=== PATIENT | female | born 1960 | race Caucasian/White ===

== ENCOUNTER 2016-10-27 06:30 | Day surgery (SDC) | payer OTHER ==
[~2016-10-27] VITALS: Ht 160 cm; Wt 87.7 kg
[2016-10-27] VITALS (9 sets, daily range): BP systolic 116–133; BP diastolic 58–79; PULSE 60–90; RESP 11–22; Ht 160 cm; Wt 87.7 kg
[2016-10-27] MEDS ORDERED: FENTAnyl 50 MCG/ML VIAL ONE (07:18)
[2016-10-27] MEDS ORDERED: ONDANSETRON 4 MG INJ ONE (07:18)
[2016-10-27] MEDS ORDERED: MIDAZOLAM 1 MG/ML 2 ML INJ ONE (07:18)
[2016-10-27] MEDS ORDERED: METOCLOPRAMIDE 10 MG INJ ONE (07:18)
[2016-10-27] MEDS ORDERED: PROPOFOL 20 ML ONE (07:18)
[2016-10-27] MEDS ORDERED: LIDOCAINE 1% (MDV) 20 ML INJ ONE (07:19)
[2016-10-27] MEDS ORDERED: DEXAMETHASONE 4 MG/ML 1 ML INJ ONE (07:19)
--- NOTE | 2016-10-27 07:54 | HPN ---
Date/Time of Note Date/Time of Note DATE: 10/27/16 TIME: 07:54 Interval H&P Admission Note Pt. seen H&P reviewed: No system changes IVY MURRY DPM October 27, 2016 07:54
[2016-10-27] MEDS ORDERED: LISI20TA11 PO (08:07)
[2016-10-27 08:14] LABS: ADD SCAN DIFF NO
[2016-10-27 08:16] LABS: BASOPHILS % 0.4 % (0.0-2.0); EOSINOPHILS # 0.1 10^3/ul (0.0-0.5); EOSINOPHILS % 1.9 % (0.0-7.0); HEMATOCRIT 43.1 % (37.0-47.0); HEMOGLOBIN 14.8 g/dl (12.0-16.0); LYMPHOCYTES # 2.1 10^3/ul (0.8-2.9); LYMPHOCYTES % 29.8 % (15.0-51.0); MEAN CORPUSCULAR HEMOGLOBIN 32.2 pg (29.0-33.0); MEAN CORPUSCULAR HGB CONC 34.3 g/dl (32.0-37.0); MEAN CORPUSCULAR VOLUME 93.9 fl (82.0-101.0); MEAN PLATELET VOLUME 9.5 fl (7.4-10.4); MONOCYTE # 0.6 10^3/ul (0.3-0.9); MONOCYTES % 8.8 % (0.0-11.0); NEUTROPHIL # 4.1 10^3/ul (1.6-7.5); NEUTROPHILS % 58.8 % (39.0-77.0); PLATELET COUNT 219 10^3/UL (140-415); RED BLOOD COUNT 4.59 10^6/ul (4.20-5.40); RED CELL DISTRIBUTION WIDTH 12.5 % (11.5-14.5)
[2016-10-27] MEDS ORDERED: CEFAZOLIN 1 GM INJ ONE (08:18)
[2016-10-27] MEDS ORDERED: BUPIVACAINE 0.5% (SDV) 30 ML INJ ONE (08:27)
[2016-10-27] MEDS ORDERED: POVIDONE IODINE 10% 28.4 GM OINT ONE (08:27)
[2016-10-27] MEDS ORDERED: HYDROmorphONE 2 MG/ML SYG ONE (08:32)
[2016-10-27 08:41] LABS: CALCIUM 9.4 mg/dl (8.4-10.2); CREATININE 0.63 mg/dl (0.44-1.00); POTASSIUM 4.1 mmol/L (3.5-5.1)
[2016-10-27] MEDS ORDERED: KETOROLAC 30 MG INJ ONE (08:42)
[2016-10-27] MEDS ORDERED: ONDANSETRON 4 MG INJ IV PRN (09:00)
[2016-10-27] MEDS ORDERED: HYDROmorphONE (0.2 MG/ML) 10ML SYG IV PRN (09:00)
[2016-10-27] MEDS ORDERED: MIDAZOLAM 1 MG/ML 2 ML INJ IV PRN (09:00)
[2016-10-27] MEDS ORDERED: hydrALAzine 20 MG INJ IV PRN (09:00)
[2016-10-27] MEDS ORDERED: FENTAnyl 50 MCG/ML VIAL IV PRN ×2 (09:00)
[2016-10-27] MEDS ORDERED: LABETALOL HCL 20MG INJ IV PRN (09:00)
[2016-10-27] MEDS ORDERED: DIPHENHYDRAMINE 50 MG INJ IV PRN (09:00)
--- NOTE | 2016-10-27 09:49 | PREOPHP ---
DATE OF ADMISSION: 10/27/2016 HISTORY OF PRESENT ILLNESS: The patient is being admitted to the hospital for elective foot surgery , palliative treatment unsuccessful. Patient has been explained surgery complications, alternatives and elected to have elective foot surgery. The pain is on the 5th metatarsal head on the left foot . ALLERGIES: PENICILLIN. MEDICATION: Occasionally Motrin. REVIEW OF SYSTEMS: Negative heart, lung, liver, kidney, thyroid. Negative diabetes. SOCIAL HISTORY: Usually smokes half pack a day and negative alcohol. See any other pertinent history in upper extremity physical exam by Dr. Saldivar. PHYSICAL EXAMINATION: LOWER EXTREMITIES: Shows DP and PT equal and regular. NEUROLOGICAL: Negative for pathology. DERMATOLOGIC: Shows a lesion plantar fifth met head left foot. MUSCULOSKELETAL: Shows a large fifth metatarsal, left foot. FINAL DIAGNOSIS: Tailor's bunion on the left foot. Dictated By: IVY YOUSSEF/LYSSA Conf#: [id number] DID#: [id number]
== END 2016-10-27 10:55 | disposition home or self-care (01) ==
LOC: SDS 06:30
PROVIDERS: ATTEND Podiatrist
DX: M21.622 Bunionette of left foot (principal)
CPT/HCPCS: 28110; 80048; 85025; 88304; 88311; J0690; J1100; J1170; J1885; J2250; J2405; J2765; J3010; Z7512; Z7610